=== PATIENT | female | born 1940 | race Caucasian/White ===

== ENCOUNTER 2020-08-01 13:23 | Observation (INO) | payer MEDICARE, MEDICAID ==
[2020-08-01 14:29] LABS: ALT (SGPT) 14 U/L (8-55); AST (SGOT) 17 U/L (5-34); Albumin 3.6 g/dL (3.4-4.8); Alkaline Phosphatase 70 U/L (40-110); Anion Gap 12 mmol/L (10-20); BUN (Urea Nitrogen) 12 mg/dL (9.8-20.1); Bilirubin, Total 0.9 mg/dL (0.2-1.2); Calc. Creatinine Clearance 0 mL/min (70-130); Calcium 8.6 mg/dL (7.8-10.44); Carbon Dioxide 24 mmol/L (23-31); Chloride 103 mmol/L (98-107); Globulin 3.1 g/dL (2.4-3.5); Glucose 129 mg/dL (83-110); Protein, Total 6.7 g/dL (5.8-8.1); Sodium 135 mmol/L (136-145)
[2020-08-01 14:31] LABS: #Eosinphils 0.2 10x3/uL (0.0-0.5); #Monocytes 0.5 10x3/uL (0.0-1.1); #Neutrophils 2.7 10x3/uL (1.5-8.4); %Basophils 0.9 % (0.0-2.0); %Eosinophils 4.7 % (0.0-6.0); %Lymphocytes 25.2 % (18.0-47.0); %Monocytes 10.7 % (0.0-10.0); %Neutrophils 58.3 % (40.0-75.0); Hemoglobin 11.1 g/dL (12.0-15.5); Mean Corpuscular HGB CONC 30.7 g/dL (32.0-36.0); Mean Corpuscular Hemoglobin 29.8 pg (27.0-33.0); Mean Corpuscular Volume 96.8 fl (81.6-98.3); Mean Platelet Volume 10.6 fl (7.4-10.4); Platelet Count 154 10x3/uL (150-450); RBC Distribution Width 13.8 % (11.5-14.5); Red Blood Cell (RBC) Count 3.73 10x6/uL (3.90-5.03); White Blood Cell (WBC) Count 4.7 10x3/uL (3.5-10.5)
[2020-08-01 14:51] LABS: CKMB 1.9 ng/mL (0-6.6)
[2020-08-01] MEDS ORDERED: Furosemide 40 MG/4 ML VIAL ONE (16:02)
[2020-08-01] MEDS ORDERED: Senokot S 8.6-50 MG TAB PO PRN (16:28)
[2020-08-01] MEDS ORDERED: Ondansetron PF 4 MG/2 ML Vial IVP PRN (16:28)
[2020-08-01 20:02] VITALS: BMI 28.1
[2020-08-01 20:44] LABS: Troponin I 0.045 ng/mL (< 0.028)
[2020-08-01] MEDS ORDERED: Melatonin 3 MG TAB PO SCH (20:45)
[2020-08-01] MEDS ORDERED: ALPRAZolam 0.5 MG TAB PO SCH (20:45)
[2020-08-01] MEDS: Apixaban 5 MG TAB PO SCH (20:50)
[2020-08-01] MEDS: Lisinopril 20 MG TAB PO SCH (20:50)
[2020-08-01] MEDS: Isosorbide Dinitrate 10 MG TAB PO SCH (20:50)
[2020-08-01] MEDS: Atorvastatin Calcium 10 MG TAB PO SCH (20:50)
[2020-08-02 06:25] LABS: #Eosinphils 0.3 10x3/uL (0.0-0.5); #Monocytes 0.6 10x3/uL (0.0-1.1); #Neutrophils 2.2 10x3/uL (1.5-8.4); %Basophils 0.9 % (0.0-2.0); %Eosinophils 5.3 % (0.0-6.0); %Lymphocytes 33.5 % (18.0-47.0); %Monocytes 12.6 % (0.0-10.0); %Neutrophils 47.5 % (40.0-75.0); Hemoglobin 11.1 g/dL (12.0-15.5); Mean Corpuscular HGB CONC 31.2 g/dL (32.0-36.0); Mean Corpuscular Hemoglobin 29.7 pg (27.0-33.0); Mean Corpuscular Volume 95.2 fl (81.6-98.3); Mean Platelet Volume 11.5 fl (7.4-10.4); Platelet Count 139 10x3/uL (150-450); RBC Distribution Width 13.9 % (11.5-14.5); Red Blood Cell (RBC) Count 3.74 10x6/uL (3.90-5.03); White Blood Cell (WBC) Count 4.7 10x3/uL (3.5-10.5)
[2020-08-02] MEDS: Acetaminophen 325 MG TAB PO PRN ×2 (06:33→21:04)
[2020-08-02] MEDS: Furosemide 40 MG/4 ML VIAL SLOW IVP SCH ×2 (06:33→13:57)
[2020-08-02 07:16] LABS: ALT (SGPT) 14 U/L (8-55); Albumin 3.3 g/dL (3.4-4.8); Alkaline Phosphatase 64 U/L (40-110); Anion Gap 13 mmol/L (10-20); BUN (Urea Nitrogen) 13 mg/dL (9.8-20.1); Bilirubin, Total 0.9 mg/dL (0.2-1.2); Calc. Creatinine Clearance 66 mL/min (70-130); Calcium 8.9 mg/dL (7.8-10.44); Carbon Dioxide 27 mmol/L (23-31); Cardiac Risk 2.9 (Less than 4.5); Chloride 103 mmol/L (98-107); Cholesterol 108 mg/dl (< 200 Desired); Globulin 3.4 g/dL (2.4-3.5); Glucose 104 mg/dL (83-110); HDL Cholesterol 37 mg/dL (>60 Neg Risk); LDL Cholesterol, Calculated 49 mg/dL; Potassium 4.9 mmol/L (3.5-5.1); Protein, Total 6.7 g/dL (5.8-8.1); Sodium 138 mmol/L (136-145); Triglycerides 110 mg/dL (Less than 150)
[2020-08-02 07:19] LABS: AST (SGOT) 26 U/L (5-34)
[2020-08-02] MEDS ORDERED: ALPRAZolam 0.5 MG TAB PO PRN (07:27)
[2020-08-02] MEDS: Apixaban 5 MG TAB PO SCH ×2 (09:13→21:01)
[2020-08-02] MEDS: Isosorbide Dinitrate 10 MG TAB PO SCH ×3 (09:13→21:01)
[2020-08-02] MEDS: Metoprolol Tartrate 50 MG TAB PO SCH ×2 (09:13→21:01)
[2020-08-02] MEDS: Lisinopril 20 MG TAB PO SCH ×2 (09:13→21:01)
[2020-08-02] MEDS: Aspirin Chewable 81 MG TAB PO SCH (09:13)
[2020-08-02] MEDS: Atorvastatin Calcium 10 MG TAB PO SCH (21:01)
[2020-08-03] MEDS: Furosemide 40 MG/4 ML VIAL SLOW IVP SCH (05:50)
[2020-08-03 06:26] LABS: #Eosinphils 0.2 10x3/uL (0.0-0.5); #Monocytes 0.8 10x3/uL (0.0-1.1); %Basophils 0.7 % (0.0-2.0); %Eosinophils 3.6 % (0.0-6.0); %Lymphocytes 28.1 % (18.0-47.0); %Monocytes 14.1 % (0.0-10.0); %Neutrophils 53.3 % (40.0-75.0); Hemoglobin 12.4 g/dL (12.0-15.5); Mean Corpuscular HGB CONC 30.9 g/dL (32.0-36.0); Mean Corpuscular Hemoglobin 29.3 pg (27.0-33.0); Mean Corpuscular Volume 94.8 fl (81.6-98.3); Mean Platelet Volume 10.4 fl (7.4-10.4); Platelet Count 175 10x3/uL (150-450); RBC Distribution Width 14.1 % (11.5-14.5); Red Blood Cell (RBC) Count 4.23 10x6/uL (3.90-5.03); White Blood Cell (WBC) Count 5.6 10x3/uL (3.5-10.5)
[2020-08-03 06:42] LABS: Anion Gap 13 mmol/L (10-20); BUN (Urea Nitrogen) 19 mg/dL (9.8-20.1); Calc. Creatinine Clearance 65 mL/min (70-130); Carbon Dioxide 30 mmol/L (23-31); Chloride 101 mmol/L (98-107); Glucose 107 mg/dL (83-110); Potassium 3.6 mmol/L (3.5-5.1); Sodium 140 mmol/L (136-145)
[2020-08-03] MEDS ORDERED: Carvedilol 12.5 MG TAB PO SCH ×2 (09:15→17:00)
[2020-08-03] MEDS: Apixaban 5 MG TAB PO SCH (10:10)
[2020-08-03] MEDS: Aspirin Chewable 81 MG TAB PO SCH (10:10)
[2020-08-03] MEDS: Isosorbide Dinitrate 10 MG TAB PO SCH (10:10)
[2020-08-03] MEDS: Lisinopril 20 MG TAB PO SCH (10:10)
[2020-08-03] MEDS: Acetaminophen 325 MG TAB PO PRN (11:03)
[2020-08-03 12:57] VITALS: BP 113/69; TEMP 98.7
== END 2020-08-03 15:54 | disposition home or self-care (01) ==
LOC: CSHERS 13:23 → CSHTELE 16:09 → UNDOADMOB 18:54 → INTOOBSV 18:54
PROVIDERS: ADMIT Internal Medicine; ATTEND Internal Medicine
DX: I11.0 Hypertensive heart disease with heart failure (principal); I50.33 Acute on chronic diastolic (congestive) heart failure; E78.5 Hyperlipidemia, unspecified; Z95.0 Presence of cardiac pacemaker; Z79.899 Other long term (current) drug therapy; Z79.01 Long term (current) use of anticoagulants
CPT/HCPCS: 71045; 80048; 80053 ×2; 80061; 82553; 83036; 83880 ×2; 84484 ×2; 85025 ×3; 93005; 93306; 96374; 96376 ×2; 97110; 97139 ×2; 97530; 99285; G0378 ×4; 36415; J1940

== ENCOUNTER 2022-01-03 21:58 | Emergency (ER) | payer OTHER, MEDICAID ==
[2022-01-03] MEDS ORDERED: Morphine 4 MG/ML VIAL ONE (23:04)
== END 2022-01-04 01:05 | disposition home or self-care (01) ==
LOC: CSHERS 21:58
DX: S20.212A Contusion of left front wall of thorax, initial encounter (principal); I10 Essential (primary) hypertension; Z86.73 Personal history of transient ischemic attack (TIA), and cerebral infarction without residual deficits; Z79.01 Long term (current) use of anticoagulants; Z79.899 Other long term (current) drug therapy; W19.XXXA Unspecified fall, initial encounter
CPT/HCPCS: 71250; 93005; 96372; J2270

== ENCOUNTER 2022-10-30 11:51 | Observation (INO) | payer OTHER, MEDICAID ==
[~2022-10-30 11:51] MED LIST: Iopamidol 370 76% 100 ML VIAL ONE
[2022-10-30 12:19] LABS: #Eosinphils 0.2 10x3/uL (0.0-0.5); #Monocytes 0.5 10x3/uL (0.0-1.1); #Neutrophils 2.7 10x3/uL (1.5-8.4); %Basophils 0.8 % (0.0-2.0); %Eosinophils 3.1 % (0.0-6.0); %Lymphocytes 34.5 % (18.0-47.0); %Monocytes 9.1 % (0.0-10.0); %Neutrophils 52.3 % (40.0-75.0); Hemoglobin 13.6 g/dL (12.0-15.5); Mean Corpuscular HGB CONC 31.9 g/dL (32.0-36.0); Mean Corpuscular Hemoglobin 31.1 pg (27.0-33.0); Mean Corpuscular Volume 97.5 fl (81.6-98.3); Mean Platelet Volume 10.3 fl (7.4-10.4); Platelet Count 175 10x3/uL (150-450); RBC Distribution Width 13.2 % (11.5-14.5); Red Blood Cell (RBC) Count 4.38 10x6/uL (3.90-5.03); White Blood Cell (WBC) Count 5.2 10x3/uL (3.5-10.5)
[2022-10-30 12:37] LABS: ALT (SGPT) 16 U/L (8-55); AST (SGOT) 25 U/L (5-34); Albumin 3.9 g/dL (3.4-4.8); Alkaline Phosphatase 58 U/L (40-110); Anion Gap 14 mmol/L (10-20); BUN (Urea Nitrogen) 14 mg/dL (9.8-20.1); Bilirubin, Total 0.7 mg/dL (0.2-1.2); Calc. Creatinine Clearance 0 mL/min (70-130); Carbon Dioxide 21 mmol/L (23-31); Chloride 104 mmol/L (98-107); Estimated GFR 66; Globulin 3.1 g/dL (2.4-3.5); Glucose 186 mg/dL (83-110); Lipase 17 U/L (8-78); Potassium 3.4 mmol/L (3.5-5.1); Sodium 136 mmol/L (136-145)
[2022-10-30] MEDS ORDERED: ALPRAZolam 0.5 MG TAB PO PRN (18:04)
[2022-10-30] MEDS ORDERED: Potassium Chloride 20 MEQ TAB PO SCH (18:15)
[2022-10-30 18:18] VITALS: BMI 28.8
[2022-10-30] MEDS ORDERED: Labetalol HCl 100 MG/20 ML VIAL SLOW IVP PRN (18:45)
[2022-10-30 20:13] LABS: Digoxin Less than 0.15 ng/mL (0.8-2.0)
[2022-10-30] MEDS: Apixaban 5 MG TAB PO SCH (21:28)
[2022-10-31 05:01] LABS: Cardiac Risk 2.7 (Less than 4.5); Cholesterol 152 mg/dl (< 200 Desired); HDL Cholesterol 56 mg/dL (>60 Neg Risk); LDL Cholesterol, Calculated 67 mg/dL; Triglycerides 145 mg/dL (Less than 150)
[2022-10-31] MEDS: Apixaban 5 MG TAB PO SCH ×2 (09:29→21:19)
[2022-11-01] MEDS ORDERED: Amlodipine 5 MG TAB PO SCH (09:00)
[2022-11-01] MEDS ORDERED: Lisinopril 20 MG TAB PO SCH (09:00)
[2022-11-01] MEDS ORDERED: Rosuvastatin 20 MG TAB PO SCH (09:00)
[2022-11-01] MEDS ORDERED: Carvedilol 12.5 MG TAB PO SCH (09:00)
[2022-11-01] MEDS ORDERED: Escitalopram Oxalate 10 mg Tablet PO SCH (09:00)
[2022-11-01] MEDS: Apixaban 5 MG TAB PO SCH (09:22)
[2022-11-01 16:19] VITALS: BP 156/71; TEMP 97.8
== END 2022-11-01 17:26 | disposition home or self-care (01) ==
LOC: CSHERS 11:51 → CSHTELE 18:07
PROVIDERS: ADMIT Internal Medicine; ATTEND Family Medicine
DX: H53.8 Other visual disturbances (principal); I48.0 Paroxysmal atrial fibrillation; E87.6 Hypokalemia; F41.9 Anxiety disorder, unspecified; F32.A Depression, unspecified; I25.10 Atherosclerotic heart disease of native coronary artery without angina pectoris; I10 Essential (primary) hypertension; D64.9 Anemia, unspecified; Z79.01 Long term (current) use of anticoagulants; Z90.710 Acquired absence of both cervix and uterus; Z88.1 Allergy status to other antibiotic agents; Z90.49 Acquired absence of other specified parts of digestive tract; Z88.8 Allergy status to other drugs, medicaments and biological substances; Z88.2 Allergy status to sulfonamides; Z79.899 Other long term (current) drug therapy
CPT/HCPCS: 70450; 70496; 70498; 71045; 80053; 80061; 80162; 83690; 83880; 84132; 84484; 85025; 93005; 93306; 97116 ×2; 97530; 97535; 99285; G0378 ×3; 36415; Q9967

== ENCOUNTER 2023-11-24 04:52 | Emergency (ER) | payer OTHER | END 2023-11-24 06:22 | disposition home or self-care (01) | LOC: CSHERS 04:52 | DX: S70.01XA Contusion of right hip, initial encounter (principal); I11.0 Hypertensive heart disease with heart failure; I50.9 Heart failure, unspecified; Z79.01 Long term (current) use of anticoagulants; W18.30XA Fall on same level, unspecified, initial encounter; Y92.009 Unspecified place in unspecified non-institutional (private) residence as the place of occurrence of the external cause ==